=== PATIENT | female | born 1990 | race Hispanic/Latino ===

== ENCOUNTER 2018-06-21 01:30 | Inpatient (IN) | payer MEDICAID ==
[2018-06-21] MEDS: LACTATED RINGERS 1,000 ML IV SCH ×2 (02:20→02:51)
[2018-06-21] MEDS ORDERED: LACTATED RINGERS 1,000 ML ONE ×2 (02:20→03:47)
[2018-06-21] MEDS ORDERED: LACTATED RINGERS 500 ML IV ONE (02:37)
[2018-06-21] MEDS ORDERED: BICITRA PO ONE (02:38)
[2018-06-21] MEDS ORDERED: PEPCID IV ONE (02:38)
[2018-06-21] MEDS ORDERED: REGLAN IV ONE (02:38)
[2018-06-21 02:50] LABS: Basophils % (Auto) 0.2 % (0.0-1.8); Eosinophils % (Auto) 0.3 % (0.0-4.3); Hematocrit 37.8 % (30.3-42.9); Hemoglobin 12.8 gm/dl (10.1-14.3); Lymphocytes # (Auto) 2.5 K/mm3 (1.2-5.4); Lymphocytes % (Auto) 19.8 % (13.4-35.0); Mean Corpuscular HGB Conc 34 % (30-34); Mean Corpuscular Hemoglobin 30 pg (28-32); Mean Corpuscular Volume 88 fl (79-97); Monocytes # (Auto) 0.8 K/mm3 (0.0-0.8); Monocytes % (Auto) 6.6 % (0.0-7.3); Platelet Count 240 K/mm3 (140-440); Red Blood Count 4.31 M/mm3 (3.65-5.03); Red Cell Distribution Width 14.6 % (13.2-15.2)
[2018-06-21] MEDS ORDERED: WATER FOR IRRIG STERILE IR ONE (03:00)
[2018-06-21] MEDS ORDERED: ANCEF/STERILE WATER 2 GM/20 ML 2 GM/20 ML SYRINGE IV NR (03:00)
[2018-06-21] MEDS ORDERED: NACL 0.9% IR ONE (03:00)
[2018-06-21] MEDS ORDERED: PITOCin/NS 20 UNIT/1000ML DRIP 20 UNITS/1,000 ML BAG IV SCH ×2 (03:00→05:00)
--- NOTE | 2018-06-21 03:07 | History and Physical Report ---
History of Present Illness Date of examination: 06/21/18 Date of admission: 06/21/18 02:45 Chief complaint: SROM clear fluid History of present illness: Pt is a 27yo WF EDC 07/29/18; EGA 34 4/7 weeks presented to labor and delivery complaining of spontaneous rupture of membranes clear fluid at 0800 followed by regular contractions. She received care at [facility] since 12 weeks and co-managed by MANDA. She was recently hospitalized at [facility] where she received steroids for suspected labor. records are not available and GBS is unknown. Past History Past Medical History: no pertinent history Past Surgical History: no surgical history Family/Genetic History: diabetes Social history: no significant social history, single - Obstetrical History Expected Date of Delivery: 07/29/18 Actual Gestation: 34 Week(s) 4 Day(s) : 1 Medications and Allergies Allergies Allergy/AdvReac Type Severity Reaction Status Date / Time citalopram [From Celexa] Allergy Hives Verified 06/21/18 02:13 Active Meds: Active Medications Lactated Ringer's (Lactated Ringers) 500 mls @ 999 mls/hr IV BOLUS ONE Stop: 06/21/18 03:07 Cefazolin Sodium (Ancef/Sterile Water 2 Gm/20 Ml) 2 gm in 20 mls @ 80 mls/hr IV PREOP NR; Protocol Stop: 06/21/18 03:14 Lactated Ringer's (Lactated Ringers) 1,000 mls @ 2,250 mls/hr IV PREOP [place] Stop: 06/22/18 03:27 Last Admin: 06/21/18 02:51 Dose: 2,250 mls/hr Oxytocin/Sodium Chloride (Pitocin/Ns 20 Unit/1000ml Drip) 20 units in 1,000 mls @ 0 mls/hr IV TITR [place] Review of Systems All systems: negative - Vital Signs Vital signs: Vital Signs Temp Pulse Resp BP Pulse Ox 98.4 F 96 H 18 151/82 97 06/21/18 01:40 06/21/18 01:40 06/21/18 01:40 06/21/18 01:40 06/21/18 01:40 Temp Pulse Resp BP Pulse Ox 98.4 F 94 H 18 151/82 98 06/21/18 01:40 06/21/18 02:20 06/21/18 01:40 06/21/18 01:51 06/21/18 02:20 - Physical Exam Breasts: Positive: deferred Cardiovascular: Regular rate Lungs: Positive: Clear to auscultation Abdomen: Positive: normal appearance Genitourinary (Female): Positive: normal external genitalia Vagina: Positive: other (clear fluid) Uterus: Positive: enlarged Extremities: Positive: normal - Obstetrical FHR: category 1 Uterine Contraction Monitor Mode: External Cervical Dilatation: 5 (per nurse) Uterine Contraction Pattern: Regular Uterine Tone Measurement Phase: Contraction Uterine Contraction Intensity: Moderate Results Result Diagrams: 06/21/18 02:27 06/21/18 02:27 Abnormal lab results 06/21/18 Range/Units 02:27 WBC 12.6 H (4.5-11.0) K/mm3 Seg Neutrophils % 73.1 H (40.0-70.0) % Seg Neutrophils # 9.2 H (1.8-7.7) K/mm3 All other labs normal. Ultrasound: report reviewed Assessment and Plan - Patient Problems (1) 34 weeks gestation of Onset Date: 06/21/18 Current Visit: Yes Status: Acute Plan to address problem: A: IUP @ 34 4/7 weeks premature ruptured membranes labor Breech presentation P: Admit to L&D for emergent Obtain records. (2) Premature rupture of membranes (PROM), onset of labor within 24 hours, antepartum, Onset Date: 06/21/18 Current Visit: Yes Status: Acute (3) contractions Onset Date: 06/21/18 Current Visit: Yes Status: Acute (4) Breech presentation Onset Date: 06/21/18 Current Visit: Yes Status: Acute Qualifiers: Fetus number: single or unspecified fetus Qualified Code(s): O32.1XX0 - Maternal care for breech presentation, not applicable or unspecified
[2018-06-21 03:10] LABS: Alanine Aminotransferase < 5 units/L (7-56)
[2018-06-21] MEDS ORDERED: ZOFRAN ONE (03:31)
--- NOTE | 2018-06-21 03:42 | Ultrasound Report ---
FINAL REPORT PROCEDURE: US OB LIMITED TECHNIQUE: Real-time limited sonographic examination was performed for evaluation of size, position, heartbeat, fluid volume for each fetus with image documentation (1 or more fetuses). CPT 41394 HISTORY: position COMPARISON: No prior studies are available for comparison. FINDINGS: Fetus is in a breech presentation. The feet are presenting through the cervical canal. Heart rate is 141 beats per minute. IMPRESSION: Fetus is in a breech presentation. The feet are presenting through the cervical canal.
[2018-06-21 03:46] LABS: Uric Acid 3.9 mg/dL (3.5-7.6)
[2018-06-21] MEDS ORDERED: NEO SYNEPHRINE/NS Syringe(OR USE) IV ONE (03:47)
[2018-06-21] MEDS ORDERED: TORADOL ONE (04:32)
--- NOTE | 2018-06-21 04:35 | Operative Report ---
Operative Report Operative Report: Date of procedure: 06/21/2018 Pre-operative diagnosis: 1. Intrauterine at 34-4/7 weeks 2. premature rupture of membranes 3. labor 4. Breech presentation Post-operative diagnosis: Same Procedure name(s): Primary low transverse section Surgeon: Azael Haas MD Manager Of Hospital: None Anesthesia: Spinal anesthesia by Dr. Bhatia EBL: 600 mls Findings: A 2821 g female infant Apgars 8 at 1 minute and 9 at 5 minutes. Double footling breech presentation. Normal uterus. Normal tubes and ovaries bilaterally. Procedure: After the patient was prepped and draped in usual sterile fashion, and after satisfactory level of epidural anesthesia was obtained, the skin knife was used to make a transverse skin incision. The incision was excised down to layer of the fascia, which was nicked in the midline and extended laterally using the Bovie cautery. The rectus muscles were dissected off the rectus fascia both superiorly and inferiorly. The rectus bellies in the midline, and the peritoneum was entered under direct visualization. The peritoneal incision was extended superiorly and inferiorly. A bladder flap was created and the bladder blade was then placed. The uterus was scored in a curvilinear linear fashion, entered in the midline revealing clear amniotic fluid. The infant's double footling breech was delivered onto the surgical field, the cord was doubly clamped and cut and the was handed to the waiting respiratory team. The placenta was manually removed from the uterus, and the uterus remained in its normal anatomical position. After gentle uterine lavage, the incision was inspected and found to be without extensions. It was then closed in 2 layers using 0 Vicryl suture in a running interlocking fashion, the second layer imbricating the first. After good hemostasis was achieved, copious amounts or irrigation was performed, and the gutters were suctioned free of blood and blood clots. Tisseel sealant was sprayed across the uterine incision. After excellent hemostasis assured, the peritoneum was re -approximated using 3-0 Vicryl suture in a running interlocking fashion, and then the rectus muscles were re-approximated using 3-0 Vicryl suture in a figure -of-eight configuration. The fascia was then re-approximated using 0 Vicryl suture in running interlocking fashion. The subcutaneous layer was made hemostatic using Bovie cautery, the Tisseel sealant was sprayed across the fascial incision and the skin edges re-approximated using 4-0 Vicryl suture in a sub-cuticular fashion. Patient tolerated the procedure well was transported to recovery in stable condition.
[2018-06-21] MEDS ORDERED: MILK OF MAGNESIA PO PRN (04:45)
[2018-06-21] MEDS ORDERED: TUCKS PAD TP PRN (04:45)
[2018-06-21] MEDS ORDERED: TYLENOL PO PRN (04:45)
[2018-06-21] MEDS ORDERED: ZOFRAN IV PRN (04:45)
[2018-06-21] MEDS ORDERED: PHENERGAN PR PRN (04:45)
[2018-06-21] MEDS ORDERED: LANSINOH TP PRN (04:45)
[2018-06-21] MEDS ORDERED: MYLICON PO PRN (04:45)
[2018-06-21] MEDS ORDERED: SENOKOT PO PRN (04:45)
[2018-06-21] MEDS ORDERED: NARCAN 0.4 MG/1 ML IV PRN (04:45)
[2018-06-21] MEDS ORDERED: NORCO 5/325 PO PRN (04:45)
[2018-06-21] MEDS ORDERED: SODIUM CHLORIDE FLUSH SYRINGE 10 ML IV PRN (05:00)
[2018-06-21] MEDS ORDERED: D5LR 1,000 ML IV SCH (05:00)
[2018-06-21] MEDS: TORADOL IV PRN ×2 (06:27→12:36)
[2018-06-21] MEDS: ANCEF/NS 1 GM/50 ML 1 GM/50 ML BAG IV SCH ×2 (12:38→21:24)
[2018-06-21] MEDS: PERCOCET 5/325 PO PRN (18:48)
[2018-06-21 19:24] LABS: Hematocrit 33.3 % (30.3-42.9); Hemoglobin 11.6 gm/dl (10.1-14.3)
[2018-06-22] MEDS: PERCOCET 5/325 PO PRN ×3 (00:16→19:19)
[2018-06-22] MEDS: MOTRIN PO PRN ×3 (04:40→17:51)
[2018-06-22] MEDS ORDERED: M-M-R II VACCINE SUB-Q ONE (04:46)
[2018-06-22] MEDS ORDERED: BOOSTRIX IM ONE (06:00)
--- NOTE | 2018-06-22 08:33 | Progress Note ---
Assessment and Plan - Patient Problems (1) 34 weeks gestation of Onset Date: 06/21/18 Current Visit: Yes Status: Resolved (2) Premature rupture of membranes (PROM), onset of labor within 24 hours, antepartum, Onset Date: 06/21/18 Current Visit: Yes Status: Resolved (3) contractions Onset Date: 06/21/18 Current Visit: Yes Status: Resolved (4) Breech presentation Onset Date: 06/21/18 Current Visit: Yes Status: Resolved Qualifiers: Fetus number: single or unspecified fetus Qualified Code(s): O32.1XX0 - Maternal care for breech presentation, not applicable or unspecified (5) Status post Onset Date: 06/22/18 Current Visit: Yes Status: Resolved Plan to address problem: A: S/P C Section - POD #1 Doing well P: Continue RPOC Anticipate discharge in 24-48hrs Subjective - Subjective Date of service: 06/22/18 Principal diagnosis: s/p C Section - POD #1 Interval history: Pt is feeling well without complaints. Bleeding improved. She is tolerating a reg diet without nausea or vomiting. Patient reports: appetite normal, voiding normally, pain well controlled, flatus , ambulating normally, no dizzy ambulation, no nauseated [place]: doing well, in NICU Objective - Vital Signs Latest vital signs: Vital Signs Temp Pulse Resp BP Pulse Ox 06/22/18 04:40 18 06/22/18 00:16 18 06/22/18 00:00 98.3 F 83 18 124/79 99 06/21/18 16:51 98.0 F 91 H 18 125/80 97 06/21/18 11:40 98.8 F 91 H 18 123/72 96 Intake and Output 06/21/18 06/22/18 06/22/18 22:59 06:59 14:59 Intake Total 360 240 Output Total 600 1500 Balance -240 -1260 Intake: Oral 360 240 Output: Urine 600 1500 Indwelling Catheter 500 Void 100 1500 Other: Total, Intake Amount 360 240 Total, Output Amount 100 800 Voiding Method Toilet # Voids Void 3 - Exam Breasts: Present: deferred Cardiovascular: Present: Regular rate Lungs: Present: Clear to auscultation Abdomen: Present: normal appearance, soft Uterus: Present: normal, firm, fundal height below umbilicus Extremities: Present: normal Incision: Present: normal, dry, intact, dressed - Labs Labs: Laboratory Tests 06/21/18 06/21/18 06/21/18 02:27 02:27 02:27 WBC 12.6 H RBC 4.31 Hgb 12.8 Hct 37.8 MCV 88 MCH 30 MCHC 34 RDW 14.6 Plt Count 240 Lymph % (Auto) 19.8 [place] % (Auto) 6.6 Eos % (Auto) 0.3 Baso % (Auto) 0.2 Lymph # 2.5 [place] # 0.8 Eos # 0.0 Baso # 0.0 Seg Neutrophils % 73.1 H Seg Neutrophils # 9.2 H Creatinine Estimated GFR Uric Acid AST ALT Lactate Dehydrogenase Hep Bs Antigen HIV 1&2 Antibody Rapid HIV P24 Antigen Rubella IgG Antibody Immune Blood Type A POSITIVE Antibody Screen Negative 06/21/18 06/21/18 06/21/18 02:27 02:27 02:27 WBC RBC Hgb Hct MCV MCH MCHC RDW Plt Count Lymph % (Auto) [place] % (Auto) Eos % (Auto) Baso % (Auto) Lymph # [place] # Eos # Baso # Seg Neutrophils % Seg Neutrophils # Creatinine 0.5 L Estimated GFR > 60 Uric Acid 3.9 AST 21 ALT < 5 L Lactate Dehydrogenase 137 Hep Bs Antigen Non-reactive HIV 1&2 Antibody Rapid Non react HIV P24 Antigen Non react Rubella IgG Antibody Blood Type Antibody Screen 06/21/18 19:10 WBC RBC Hgb 11.6 Hct 33.3 MCV MCH MCHC RDW Plt Count Lymph % (Auto) [place] % (Auto) Eos % (Auto) Baso % (Auto) Lymph # [place] # Eos # Baso # Seg Neutrophils % Seg Neutrophils # Creatinine Estimated GFR Uric Acid AST ALT Lactate Dehydrogenase Hep Bs Antigen HIV 1&2 Antibody Rapid HIV P24 Antigen Rubella IgG Antibody Blood Type Antibody Screen
[2018-06-22] MEDS: PRENATAL VITAMIN PO SCH (10:51)
[2018-06-22] MEDS: FEOSOL PO SCH (10:51)
[2018-06-23] MEDS: PERCOCET 5/325 PO PRN (01:18)
[2018-06-23] MEDS: MOTRIN PO PRN ×2 (07:30→14:18)
[2018-06-23 08:21] VITALS: BP 143/83
--- NOTE | 2018-06-23 09:14 | Progress Note ---
Assessment and Plan - Patient Problems (1) 34 weeks gestation of Onset Date: 06/21/18 Current Visit: Yes Status: Resolved (2) Premature rupture of membranes (PROM), onset of labor within 24 hours, antepartum, Onset Date: 06/21/18 Current Visit: Yes Status: Resolved (3) contractions Onset Date: 06/21/18 Current Visit: Yes Status: Resolved (4) Breech presentation Onset Date: 06/21/18 Current Visit: Yes Status: Resolved Qualifiers: Fetus number: single or unspecified fetus Qualified Code(s): O32.1XX0 - Maternal care for breech presentation, not applicable or unspecified (5) Status post Onset Date: 06/22/18 Current Visit: Yes Status: Resolved Plan to address problem: A: S/P C Section - POD #2 Doing well P: May go home today. Subjective - Subjective Date of service: 06/23/18 Principal diagnosis: s/p C Section - POD #2 Interval history: Pt is feeling well without complaints. She is tolerating a reg diet without nausea or vomiting, ambulating and voiding without difficulty. Patient reports: appetite normal, voiding normally, pain well controlled, flatus , bowel movement, ambulating normally, no dizzy ambulation, no nauseated [place]: doing well, in NICU Objective - Vital Signs Latest vital signs: Vital Signs Temp Pulse Resp BP BP Pulse Ox 06/23/18 07:57 98.6 F 84 18 143/83 94 06/23/18 00:00 98.3 F 88 18 127/78 98 06/22/18 16:08 97.9 F 83 20 115/70 98 Intake and Output 06/22/18 06/23/18 06/23/18 22:59 06:59 14:59 Intake Total 480 Balance 480 Intake: Oral 480 Other: Total, Intake Amount 240 # Voids Void 1 1 - Exam Breasts: Present: deferred Cardiovascular: Present: Regular rate Lungs: Present: Clear to auscultation Abdomen: Present: normal appearance, soft Uterus: Present: normal, firm, fundal height below umbilicus Extremities: Present: normal
[2018-06-23] MEDS: FEOSOL PO SCH ×2 (09:46→09:47)
[2018-06-23] MEDS: PRENATAL VITAMIN PO SCH (09:46)
--- NOTE | 2018-06-23 10:25 | Discharge Summary ---
Providers - Providers Date of Admission: 06/21/18 02:45 Date of discharge: 06/23/18 Attending physician: NADIA LEA Primary care physician: NADIA LEA Hospitalization Reason for admission: active labor, IUP - , rupture of membranes, other ( Breech presentation) Delivery: Procedure: section, primary low transverse Laceration: none Incision: normal, dry, intact Other procedures: none complications: none Discharge diagnosis: delivery baby: female Hospital course: Pt is a 27yo WF EDC 07/29/18; EGA 34 4/7 weeks who presented to labor and delivery complaining of spontaneous rupture of membranes clear fluid at 0800 followed by regular contractions. She received care at [facility] since 12 weeks and co-managed by MANDA. She was examined and found to have a footling breech presentation and therefore was delivered by an uncomplicated C Section. By POD #2 she was tolerating a reg diet without nausea or vomiting, ambulating and voiding without difficulty, and was therefore discharged to home on POD #2 in stable condition. Condition at discharge: Good Disposition: [id number] TO HOME OR SELFCARE - Discharge Diagnoses (1) 34 weeks gestation of Status: Resolved (2) Premature rupture of membranes (PROM), onset of labor within 24 hours, antepartum, Status: Resolved (3) contractions Status: Resolved (4) Breech presentation Status: Resolved Qualifiers: Fetus number: single or unspecified fetus Qualified Code(s): O32.1XX0 - Maternal care for breech presentation, not applicable or unspecified (5) Status post Status: Resolved Plan - Discharge Medications Prescriptions: Ferrous Sulfate [Feosol 325 MG tab] 325 mg PO BID #60 tablet HYDROcodone/APAP 5-325 [[place] 5-325 mg TAB] 1 each PO Q6HR PRN #30 tablet PRN Reason: Pain, Moderate (4-6) Ibuprofen [Motrin 800 MG tab] 800 mg PO Q6H PRN #30 tablet PRN Reason: Pain, Mild (1-3) Vit-Fe Fumar-FA [ Vitamin] 1 each PO QDAY #30 tablet - Provider Discharge Summary Activity: routine, no sex for 6 weeks, no heavy lifting 4 weeks, no strenuous exercise Diet: routine Instructions: routine Additional instructions: [] Smoking cessation referral if applicable(refer to patient education folder for contact #) [] Refer to [facility]'s [facility] Booklet Call your doctor immediately for: * Fever > 100.5 * Heavy vaginal bleeding ( >1 pad per hour) * Severe persistent headache * Shortness of breath * Reddened, hot, painful area to leg or breast * Drainage or odor from incision. * Keep incision clean and dry at all times and follow doctor's instructions regarding bathing/showering - Follow up plan Follow up: NADIA LEA MD [Primary Care Provider] - 14 Days LINDSEY THRASHER CNM [Advanced Practice Nurse] - 14 Days
== END 2018-06-23 16:00 | disposition home or self-care (01) | DRG 765 ==
LOC: TRG 01:30 → APU 02:45 → TRG 02:45 → OB 06:22
PROVIDERS: ADMIT Obstetrics & Gynecology; ATTEND Obstetrics & Gynecology
PROC: 10D00Z1 Extraction of Products of Conception, Low, Open Approach (ICD-10-PCS; principal; 2018-06-21)
DX: O32.8XX0 Maternal care for other malpresentation of fetus, not applicable or unspecified (principal); O60.14X0 Preterm labor third trimester with preterm delivery third trimester, not applicable or unspecified; O42.02 Full-term premature rupture of membranes, onset of labor within 24 hours of rupture; Z3A.34 34 weeks gestation of pregnancy; Z37.0 Single live birth; Z71.3 Dietary counseling and surveillance; Z88.8 Allergy status to other drugs, medicaments and biological substances
CPT/HCPCS: 36415; 76815; 82565; 83615; 84450; 84460; 84550; 85014; 85018; 85025; 86706; 86762; 86850; 86900; 86901; 87806; 88307; 90715; 99211; C9250; G0463; J0690; J1885; J2370; J2405; J2590; J2765; J7120; J7121